=== PATIENT | female | born 1985 | race Caucasian/White ===

== ENCOUNTER → 2019-11-04 | Outpatient (CLI) | payer OTHER | LOC: BHSO 10:46 | DX: F41.1 Generalized anxiety disorder (principal) ==

== ENCOUNTER → 2020-03-09 | Outpatient (CLI) | payer OTHER | LOC: BHSO 13:15 | DX: F41.1 Generalized anxiety disorder (principal) | CPT/HCPCS: G0463 ==

== ENCOUNTER → 2020-05-11 | Outpatient (CLI) | payer OTHER | LOC: BHSO 13:02 | DX: F33.41 Major depressive disorder, recurrent, in partial remission (principal) | CPT/HCPCS: G0463 ==

== ENCOUNTER → 2021-04-19 | Outpatient (CLI) | payer OTHER | LOC: MHCPAIN 09:42 | DX: M54.6 Pain in thoracic spine (principal); M54.2 Cervicalgia; M79.18 Myalgia, other site; F17.210 Nicotine dependence, cigarettes, uncomplicated | CPT/HCPCS: G0463 ==